=== PATIENT | female | born 1950 | race Caucasian/White ===

== ENCOUNTER 2018-07-06 12:32 | Day surgery (SDC) | payer MEDICARE, OTHER, SELFPAY ==
[2018-07-06] VITALS (8 sets, daily range): BP systolic 106–129; BP diastolic 65–83; PULSE 65–95; RESP 10–16; TEMP 36.3–36.9; O2SAT 94–99; BMI 23.0
[2018-07-06] MEDS: SODIUM CHLORIDE 0.9% 1,000 ML 200 ML IV (13:08)
[2018-07-06] MEDS: SCOPOLAMINE 1 PATCH TOP (13:20)
--- NOTE | 2018-07-06 13:28 | PM.HP.1 ---
History of Present Illness Date Patient Seen: 07/06/18 Time Patient Seen: 13:28 Chief complaint: colonoscopy [id number] Narrative: Pleasant 68-year-old lady here for her 1st screening colonoscopy. She reports that she does have a family history of colon cancer affecting her father in his mid 60s. She reports he had a partial colectomy and underwent chemotherapy and then was able to live to a normal life expectancy. She has had no problems or symptoms related to the function of her GI tract. She reports that she has heard ?horror stories? from the [facility] regarding colonoscopies. This caused her to delay her study until this time. She has not seen any blood in her stool. She is concerned because she reports she is very sensitive to anesthetics and had a terrible night of nausea and vomiting after having her wrist fixed this past March. Patient History Family & Social History Family History: Reviewed 07/06/18 by Lauren Nguyen MD Social History: household members family Review of Systems Review of Systems All systems reviewed & are unremarkable except as noted in HPI and below Exam Vital Signs (past 8 hours): - 07/06/18 12:58 Temperature 98.1 F Pulse Rate 95 H Respiratory Rate 16 Blood Pressure 129/83 Pulse Oximetry 99 Oxygen Delivery Method Room Air Narrative Exam Narrative: Very pleasant, well-nourished, and well-developed lady in no obvious distress HEENT: Normocephalic and atraumatic, pupils equal round reactive to light accommodation with anicteric sclera Lungs: Clear bilaterally Heart: Regular rate rhythm without murmur rub or gallop Abdomen: Soft, nontender, active bowel sounds Extremities: Warm and well perfused without edema Assessment & Plan Plan: Assessment/Plan Narrative: Very pleasant 68-year-old lady who presents for her 1st screening colonoscopy. We discussed the risks and benefits of the procedure the patient expressed desire to complete it today.
[2018-07-06] MEDS: ONDANSETRON 4 MG/2 ML INJ IV (13:41)
[2018-07-06] MEDS: MIDAZOLAM 5 MG/5 ML VIAL IV (13:43)
[2018-07-06] MEDS: fentaNYL 250 MCG/5 ML INJ IV (13:44)
--- NOTE | 2018-07-06 14:01 | PM.OP.1 ---
Operative Date/Time/Diagnoses Date of procedure: 07/06/18 Time of procedure: 14:01 Pre-op diagnosis: Screening Family history of colon cancer Procedure & Clinicians Procedure: Colonoscopy to the cecum Same procedure as scheduled: Yes Indications: No prior colonoscopy Surgeon: Lauren Nguyen Click Yes if Unassisted: Yes Anesthesia Type: Sedation (Versed 6 mg; fentanyl 175 mcg) Operative Notes Findings: 1. Adequate prep 2. No polyps or mass lesions 3. No visible AV malformations 4. Scattered diverticulosis throughout the colon with just a few large pockets randomly 5. Grade 1 internal hemorrhoids 6. Essentially normal colonoscopy for age Closure Type: not applicable Specimen(s): none sent Procedure in detail: After obtaining informed consent, the patient was brought to the GI suite and placed in the left lateral decubitus position on the examination table. After placement of appropriate monitors, the patient was given incremental doses of Versed and Fentanyl until an appropriate level of sedation was achieved. A time out was held per [facility] protocol. A digital rectal examination was performed and did not reveal any masses or obstructing lesions. The colonoscope was gently passed into the patient's anus and the entire colon navigated to the level of the cecum with moderate difficulty due to colon tortuosity. With external pressure, we were able to complete our journey to the cecum. Once in the cecum, the scope was withdrawn being sure to go before and beyond all mucosal folds and prominences and get an excellent examination. The findings are noted above. At the level of the rectal vault, the scope was retroflexed and the internal anal canal was examined. The scope was straightened and air aspirated from the colon. The instrument was removed from the patient's body and the procedure was concluded. The patient was allowed to awaken from sedation without difficulty and taken to the post-anesthesia care unit in good condition. Total sedation time 19 min Total withdrawal time 11 min 14 sec Complications: none Condition: stable Disposition: PACU Plan for aftercare: 1. Discharge to home 2. Plan for next colonoscopy in 5 years due to patient's family history.
--- NOTE | 2018-07-06 15:23 | SUR.PHASEII ---
1500 late entry: care assumed from Primitivo Vargas rn. pt stated Dr. Nguyen was going to send her home with a prescription for ondansetron, Dr. Nguyen called med in to [facility] in [place] as that per the pt is where she gets her meds filled. pt left when ready ansd left in stable condition. Pt returned looking for hair scrunchie, found in garbage, returned to pt. pt again left in stable condition.
== END 2018-07-06 15:19 | disposition home or self-care (01) ==
PROVIDERS: Visit Provider Surgery
PROC: 0DJD8ZZ Inspection of Lower Intestinal Tract, Via Natural or Artificial Opening Endoscopic (ICD-10-PCS; CPT 45378; principal; 2018-07-06 13:45)
DX: Z12.11 Encounter for screening for malignant neoplasm of colon (principal); Z80.0 Family history of malignant neoplasm of digestive organs; K57.30 Diverticulosis of large intestine without perforation or abscess without bleeding; K64.0 First degree hemorrhoids
CPT/HCPCS: G0105; 99152; J2250; J2405; J3010